=== PATIENT | male | born 1965 | race Caucasian/White ===

== ENCOUNTER 2020-11-11 10:11 | Emergency (ER) | payer SELFPAY ==
[2020-11-11] MEDS ORDERED: Albuterol/Ipratropium 3.0-0.5 MG/3 ML Neb Soln NEB ONE ×2 (10:27→11:31)
[2020-11-11] MEDS ORDERED: methylPREDNISolone Sodium Succinate 125 MG/2 ML SDV IVPUSH ONE (10:27)
[2020-11-11] MEDS ORDERED: Sodium Chloride 0.9% 10 ML Syringe FLUSH PRN (10:27)
--- NOTE | 2020-11-11 11:37 | EDM.PDOC ---
ED HPI GENERAL MEDICAL PROBLEM - General Chief Complaint: Back Pain or Injury Stated Complaint: DIFFICULTY BREATHING /COPD Time Seen by Provider: 11/11/20 10:23 Source of Information: Reports: Patient History Limitations: Reports: No Limitations - History of Present Illness INITIAL COMMENTS - FREE TEXT/NARRATIVE: The patient presents with shortness of breath and wheezing. This started last night. The patient was diagnosed with COPD recently and he was put on albuterol inhaler as needed. He has been using it today and he is nearly out. He has no fever or chills. He does have a slight cough. He has no chest pain, abdominal pain, nausea or vomiting. Onset: Gradual Duration: Day(s): (last night) Severity: Moderate Improves with: Reports: None Worsens with: Reports: None Associated Symptoms: Reports: Cough, Shortness of Breath. Denies: Chest Pain, Fever/Chills, Headaches, Nausea/Vomiting - Related Data Allergies Allergy/AdvReac Type Severity Reaction Status Date / Time No Known Allergies Allergy Verified 11/11/20 10:26 Home Meds: Home Meds Albuterol Sulfate [Albuterol Sulfate HFA] 2 puff INH BID 11/11/20 [History] Albuterol [Proventil HFA] 2 puff INH Q4H PRN #1 inhaler 11/11/20 [Rx] predniSONE [Prednisone] 40 mg PO DAILY #10 tablet 11/11/20 [Rx] Past Medical History Cardiovascular History: Reports: Hypertension Respiratory History: Reports: COPD Social & Family History - Tobacco Use Tobacco Use Status *Q: Current Every Day Tobacco User Years of Tobacco use: 36 Packs/Tins Daily: 1 Used Tobacco, but Quit: Yes Month/Year Tobacco Last Used: 2020 - Recreational Drug Use Recreational Drug Use: No ED ROS GENERAL - Review of Systems Review Of Systems: See Below Constitutional: Reports: No Symptoms HEENT: Reports: No Symptoms Respiratory: Reports: Shortness of Breath, Wheezing, Cough Cardiovascular: Reports: No Symptoms Endocrine: Reports: No Symptoms GI/Abdominal: Reports: No Symptoms : Reports: No Symptoms Musculoskeletal: Reports: No Symptoms ED EXAM, UPPER BACK/NECK PAIN - Physical Exam Exam: See Below Exam Limited By: No Limitations General Appearance: Alert, No Apparent Distress Ears Exam: Normal External Exam Head Exam: Atraumatic, Normocephalic Cardiovascular/Respiratory: Regular Rate, Rhythm, No M/R/G, No Respiratory Distress, Wheezing (Moderate) GI/Abdominal: Soft, Non-Tender, No Organomegaly, No Mass Course - Vital Signs Last Recorded V/S: Last Vital Signs Temp 98.5 F 11/11/20 10:22 Pulse 70 11/11/20 10:22 Resp 16 11/11/20 10:22 BP 195/93 H 11/11/20 10:22 Pulse Ox 94 L 11/11/20 11:31 - Orders/Labs/Meds Orders: Active Orders 24 hr Category Date Time Status Cardiac Monitoring [RC] . DIRECTED Care 11/11/20 10:27 Active Oxygen Therapy [RC] PRN Care 11/11/20 10:27 Active Peripheral IV Care [RC] . DIRECTED Care 11/11/20 10:27 Active RT Aerosol Therapy [RC] ASDIRECTED Care 11/11/20 10:27 Active RT Aerosol Therapy [RC] ASDIRECTED Care 11/11/20 11:31 Active Sodium Chloride 0.9% [Saline Flush] Med 11/11/20 10:27 Active 10 ml FLUSH ASDIRECTED PRN Peripheral IV Insertion Adult [OM.PC] Stat Oth 11/11/20 10:27 Ordered Medication Orders Sodium Chloride (Sodium Chloride 0.9% 10 Ml Syringe) 10 ml FLUSH ASDIRECTED PRN PRN Reason: Keep Vein Open Last Admin: 11/11/20 10:35 Dose: 10 ml Documented by: CECY Labs: Laboratory Tests 11/11/20 11/11/20 Range/Units 10:35 10:35 WBC 10.45 H (4.23-9.07) K/mm3 RBC 5.59 (4.63-6.08) M/mm3 Hgb 16.7 (13.7-17.5) gm/dl Hct 48.9 (40.1-51.0) % MCV 87.5 (79.0-92.2) fl MCH 29.9 (25.7-32.2) pg MCHC 34.2 (32.2-35.5) g/dl RDW Std Deviation 42.2 (35.1-43.9) fL Plt Count 293 (163-337) K/mm3 MPV 10.0 (9.4-12.3) fl Neut % (Auto) 67.6 (34.0-67.9) % Lymph % (Auto) 17.7 L (21.8-53.1) % [place] % (Auto) 8.7 (5.3-12.2) % Eos % (Auto) 5.5 (0.8-7.0) Baso % (Auto) 0.4 (0.1-1.2) % Neut # (Auto) 7.07 H (1.78-5.38) K/mm3 Lymph # (Auto) 1.85 (1.32-3.57) K/mm3 [place] # (Auto) 0.91 H (0.30-0.82) K/mm3 Eos # (Auto) 0.57 H (0.04-0.54) K/mm3 Baso # (Auto) 0.04 (0.01-0.08) K/mm3 Manual Slide Review Normal smear Sodium 141 (136-145) mEq/L Potassium 4.6 (3.5-5.1) mEq/L Chloride 103 (98-107) mEq/L Carbon Dioxide 30 (21-32) mEq/L Anion Gap 12.6 (5-15) BUN 18 (7-18) mg/dL Creatinine 1.1 (0.7-1.3) mg/dL Est Cr Clr Drug Dosing TNP Estimated GFR (MDRD) > 60 (>60) mL/min BUN/Creatinine Ratio 16.4 (14-18) Glucose 102 H (70-99) mg/dL Calcium 9.5 (8.5-10.1) mg/dL Total Bilirubin 0.6 (0.2-1.0) mg/dL AST 24 (15-37) U/L ALT 47 (16-63) U/L Alkaline Phosphatase 64 (46-116) U/L Total Protein 8.0 (6.4-8.2) g/dl Albumin 4.1 (3.4-5.0) g/dl Globulin 3.9 gm/dL Albumin/Globulin Ratio 1.1 (1-2) Meds: Medications Generic Name Dose Route Start Last Admin Trade Name Freq PRN Reason Stop Dose Admin Sodium Chloride 10 ml 11/11/20 10:27 11/11/20 10:35 Sodium Chloride 0.9% 10 Ml Syringe FLUSH 10 ml ASDIRECTED PRN Administration Keep Vein Open Discontinued Medications Generic Name Dose Route Start Last Admin Trade Name Freq PRN Reason Stop Dose Admin Albuterol/Ipratropium 3 ml 11/11/20 10:27 11/11/20 10:42 Albuterol/Ipratropium 3.0-0.5 Mg/3 Ml Neb Soln NEB 11/11/20 10:28 3 ml ONETIME ONE Administration Albuterol/Ipratropium 3 ml 11/11/20 11:31 11/11/20 11:40 Albuterol/Ipratropium 3.0-0.5 Mg/3 Ml Neb Soln NEB 11/11/20 11:32 3 ml ONETIME ONE Administration Methylprednisolone Sodium Succinate 125 mg 11/11/20 10:27 11/11/20 10:35 Methylprednisolone Sodium Succinate 125 Mg/2 Ml Sdv IVPUSH 11/11/20 10:28 125 mg ONETIME ONE Administration - Re-Assessments/Exams Free Text/Narrative Re-Assessment/Exam: 11/11/20 11:38 I ordered an IV saline lock, CXR, oxygen, duoneb, solu-medrol 125mg IV and some labs. His CXR looks good. His WBC was elevated at 10.45. His CMP looks good. He is moving air better. I have ordered another duoneb. 11/11/20 12:01 He is moving air better. I will get him on prednisone and another albuterol inhaler. Departure - Departure Time of Disposition: 12:10 Disposition: Home, Self-Care 01 Condition: Good Clinical Impression: COPD exacerbation - Discharge Information *PRESCRIPTION DRUG MONITORING PROGRAM REVIEWED*: Not Applicable *COPY OF PRESCRIPTION DRUG MONITORING REPORT IN PATIENT BALDEV: Not Applicable Prescriptions: predniSONE [Prednisone] 40 mg PO DAILY #10 tablet Albuterol [Proventil HFA] 2 puff INH Q4H PRN #1 inhaler PRN Reason: Shortness Of Breath Referrals: Dayron Tubbs NP [Primary Care Provider] - 1 Week Forms: ED Department Discharge Additional Instructions: Take the prednisone 40mg dailly for 5 days. Use the albuterol 2 puffs every 4 to 6 hours as needed for shortness of breath. Please return if you are worse. Sepsis Event Note (ED) - Evaluation Sepsis Screening Result: No Definite Risk - Focused Exam Vital Signs: Vital Signs Temp Pulse Resp BP Pulse Ox Pulse Ox Pulse Ox 11/11/20 11:31 94 L 11/11/20 10:27 95 11/11/20 10:22 98.5 F 70 16 195/93 H 90 L - My Orders Last 24 Hours: My Active Orders 11/11/20 10:27 Cardiac Monitoring [RC] . DIRECTED Oxygen Therapy [RC] PRN Peripheral IV Care [RC] . DIRECTED RT Aerosol Therapy [RC] ASDIRECTED Sodium Chloride 0.9% [Saline Flush] 10 ml FLUSH ASDIRECTED PRN Peripheral IV Insertion Adult [OM.PC] Stat 11/11/20 11:31 RT Aerosol Therapy [RC] ASDIRECTED - Assessment/Plan Last 24 Hours: My Active Orders 11/11/20 10:27 Cardiac Monitoring [RC] . DIRECTED Oxygen Therapy [RC] PRN Peripheral IV Care [RC] . DIRECTED RT Aerosol Therapy [RC] ASDIRECTED Sodium Chloride 0.9% [Saline Flush] 10 ml FLUSH ASDIRECTED PRN Peripheral IV Insertion Adult [OM.PC] Stat 11/11/20 11:31 RT Aerosol Therapy [RC] ASDIRECTED
--- NOTE | 2020-11-11 11:47 | CR ---
Chest: Portable view of the chest was obtained. Comparison: No prior chest imaging is available. Heart size and mediastinum are normal. Lungs are clear with no acute parenchymal change. No acute osseous abnormality is appreciated. Impression: 1. Nothing acute is appreciated on portable chest x-ray. Diagnostic code #1
[2020-11-11] MEDS ORDERED: Albuterol 6.7 GM Inhaler INH ONE (12:01)
== END 2020-11-11 12:23 | disposition home or self-care (01) ==
LOC: JD.ED 10:11
DX: J44.1 Chronic obstructive pulmonary disease with (acute) exacerbation (principal); I10 Essential (primary) hypertension; Z72.0 Tobacco use; Z79.899 Other long term (current) drug therapy
CPT/HCPCS: 36415; 71045; 80053; 85025; 94640; 96374; 99285; A9270; J2930; 99283; J7620-GY

== ENCOUNTER 2021-08-12 11:06 | Day surgery (SDC) | payer SELFPAY ==
[~2021-08-12 11:06] MED LIST: Bupivacaine 0.5% 10 ML SDV ONE; Lactated Ringers 1,000 ML IV SCH; Lidocaine 1%/Sod Bicarbonate in NS 8.4% 1 ML Syringe IDERM PRN; Sodium Chloride 0.9% 10 ML Syringe FLUSH PRN; Sodium Chloride 0.9% 10 ML Syringe FLUSH SCH
[2021-08-12] MEDS ORDERED: Midazolam 1 MG/ML 2 ML SDV ONE (11:35)
[2021-08-12] MEDS ORDERED: fentaNYL 100 MCG/2 ML SDV ONE (11:35)
[2021-08-12] MEDS ORDERED: Propofol 200 MG/20 ML SDV ONE (11:35)
[2021-08-12] MEDS ORDERED: Lidocaine 1% 4 ML ONE (11:36)
[2021-08-12] MEDS ORDERED: Ondansetron 4 MG/2 ML SDV ONE (12:30)
[2021-08-12] MEDS: Bupivacaine 0.5% 30 ML SDV ONE ×2 (12:39→15:45)
[2021-08-12] MEDS ORDERED: Bacitracin Oint 15 GM Tube ONE (12:44)
== END 2021-08-12 14:30 | disposition home or self-care (01) ==
LOC: JD.SDS 11:06
PROVIDERS: ATTEND Surgery
DX: A63.0 Anogenital (venereal) warts (principal); I10 Essential (primary) hypertension; F17.200 Nicotine dependence, unspecified, uncomplicated; E78.00 Pure hypercholesterolemia, unspecified; R73.03 Prediabetes; Z79.899 Other long term (current) drug therapy
CPT/HCPCS: 46924; A9270; J2250; J2405; J2704; J3010; J3490; J7120; 00902